=== PATIENT | male | born 1980 | race Caucasian/White ===

== ENCOUNTER 2019-10-15 20:28 | Emergency (ER) | payer BC, SELFPAY ==
[2019-10-15 20:39] VITALS: BP 146/89; PULSE 72; RESP 18; TEMP 35.8; O2SAT 99; BMI 35.9
--- NOTE | 2019-10-15 21:56 | CTR_ITS ---
PROCEDURE INFORMATION: Exam: CT Abdomen And Pelvis Without Contrast Exam date and time: 10/15/2019 10:13 PM Age: 39 years old Clinical indication: Abdominal pain; Flank; Left; Prior surgery; Surgery type: L-spine; Additional info: Flank pain TECHNIQUE: Imaging protocol: Computed tomography of the abdomen and pelvis without contrast. Radiation optimization: All CT scans at this facility use at least one of these dose optimization techniques: automated exposure control; mA and/or kV adjustment per patient size (includes targeted exams where dose is matched to clinical indication); or iterative reconstruction. COMPARISON: No relevant prior studies available. RADIATION DOSE METRICS: Total DLP: 2095.95 mGy-cm FINDINGS: Liver: Normal. No mass. Gallbladder and bile ducts: Normal. No calcified stones. No ductal dilation. Pancreas: Normal. No ductal dilation. Spleen: Normal. No splenomegaly. Adrenals: Normal. No mass. Kidneys and ureters: 3 mm calculus in the distal left ureter. Very mild left hydronephrosis and columning of the ureter. The right kidney and collecting system are normal. Stomach and bowel: Unremarkable. No obstruction. No mucosal thickening. Appendix: The appendix is visualized and is normal. Intraperitoneal space: Unremarkable. No free air. No significant fluid collection. Vasculature: Unremarkable. No abdominal aortic aneurysm. Lymph nodes: Unremarkable. No enlarged lymph nodes. Bladder: Unremarkable as visualized. Reproductive: Unremarkable as visualized. Bones/joints: Unremarkable. No acute fracture. Soft tissues: Unremarkable. CT/CT kidney stone [id number] IMPRESSION: 1. 3 mm calculus in the distal left ureter with very mild left hydronephrosis. Radiation Dose CTDIVOL = (mGy): DLP = 2095.95 (mGy-cm)
--- NOTE | 2019-10-15 21:58 | W.ED.MALEGU ---
HPI - Male Genitourinary General: Chief complaint: Urogenital-Male Stated complaint: POSSIBLE KIDNEY STONES Time Seen by Provider: 10/15/19 21:27 Source: patient Mode of arrival: ambulatory Limitations: no limitations History of Present Illness: HPI Narrative: 39-year-old male states he has had left flank pain that began 2 hours ago. He states pain is sharp in nature and rates it a 6 out of 10. He denies any vomiting or diarrhea but has had some nausea. Denies any fevers. Denies any testicle pain. He has no history of kidney stones in the past. Associated symptoms: Deny dysuria, nausea or vomiting Review of Systems Const: Denies: fever(s), chills, body aches or change in appetite Eyes: Denies: blurry vision or eye discomfort ENMT: Denies: throat pain or dental pain Card: Denies: chest pain Resp: Denies: dyspnea GI: Reports: abdominal pain; Denies: nausea, vomiting or diarrhea : Reports: flank pain; Denies: dysuria Musc: Denies: neck pain or back pain Skin/Breast: Denies: rash Neuro: Denies: headache(s) Psych: Denies: depression Alan/Lymph: Denies: easy bruising All/Imm: Denies: urticaria PFSH ED PFSH: Social History Smoking and tobacco status: never smoked Physical Exam Const: COMMON NORMALS: no acute distress, patient oriented x3 and healthy appearing HENMT: COMMON NORMALS: normocephalic and atraumatic HEAD & SCALP: normocephalic and atraumatic Eye: COMMON NORMALS: Equal, round and reactive pupils present and EOMs intact bilaterally PUPIL: Yes Equal, round and reactive pupils present Neck/C-Spine: COMMON NORMALS: full ROM and supple Chest: COMMONS NORMALS: normal inspection of the chest and normal palpation of entire chest wall Resp: COMMON NORMALS: normal respiratory effort, No retractions, No use of accessory muscles and clear to auscultation bilaterally AUSCULTATION: clear to auscultation bilaterally Cardio: COMMON NORMALS: regular rate, regular rhythm and No murmurs present (Cardio) RATE: regular rate RHYTHM: regular rhythm GI: COMMON NORMALS: Normal to inspection, nondistended, normoactive bowel sounds present, Soft to palpation, non-tender and no masses PALPATION: Yes Soft to palpation Extremity: COMMON NORMALS: normal to inspection and full ROM Neuro: COMMON NORMALS: patient oriented x3, moves all extremities and no focal motor deficits Psych: COMMON NORMALS: mental status grossly normal, Normal thought process present and cooperative THOUGHT PROCESS: Normal thought process present Skin: COMMON NORMALS: no rashes or lesions noted and no wounds GENERAL SKIN EXAM: no rashes or lesions noted Course Vital Signs: Vital signs: Vital Signs Temperature 96.5 F L 10/15/19 20:39 Pulse Rate 72 10/15/19 20:39 Respiratory Rate 18 10/15/19 20:39 Blood Pressure 146/89 10/15/19 20:39 Pulse Oximetry 99 10/15/19 20:39 MDM - Male MDM Narrative: Medical decision making narrative: Patient presents here with flank pain was found to have a kidney stone. Patient's pain-free here now and is stable for discharge. He is to follow-up with urology and return if worsening. Lab Data: Labs: Lab Results 10/15/19 Range/Units 23:20 Urine Color Yellow (Yellow) Urine Appearance Sl hazy (CLEAR) Urine pH 5 (5-7) Ur Specific Gravit y 1.020 (1.005-1.030) Urine Protein Neg (Negative) Urine Glucose (UA) Norm (Normal) Urine Ketones Negative (Negative) Urine Blood 3+ H (Negative) Urine Nitrate Negative (Negative) Urine Bilirubin Neg (NEGATIVE) Urine Urobilinogen Norm (Negative) mg/dL Ur Leukocyte Erin ase Negative (Negative) Urine RBC 50-80 H (0-2) /hpf Urine WBC 0-4 H (0-5) /hpf Ur Squamous Epith Cells 0-4 H (0-5) Urine Bacteria 1+ H (NONE) Imaging Data: CT Abd/Pel: Attestation: I personally reviewed and interpreted this imaging study as follows: Radiologist's impression: [address] [place] [address] CT Scan Report Signed Patient: Cindy Craig Unit #: [id number] : 1980 Age/Sex: 39 / M ADM Date: 10/15/19 Loc: ER Room/Bed: Attending Dr: Ordering Provider/Ordering MD: Gamaliel Casey MD Date of Service: 10/15/19 Procedure(s): CT kidney stone [id number] Accession Number(s): [id number] Report Number: [id number] PROCEDURE INFORMATION: Exam: CT Abdomen And Pelvis Without Contrast Exam date and time: 10/15/2019 10:13 PM Age: 39 years old Clinical indication: Abdominal pain; Flank; Left; Prior surgery; Surgery type: L-spine; Additional info: Flank pain TECHNIQUE: Imaging protocol: Computed tomography of the abdomen and pelvis without contrast. Radiation optimization: All CT scans at this facility use at least one of these dose optimization techniques: automated exposure control; mA and/or kV adjustment per patient size (includes targeted exams where dose is matched to clinical indication); or iterative reconstruction. COMPARISON: No relevant prior studies available. RADIATION DOSE METRICS: Total DLP: 2095.95 mGy-cm FINDINGS: Liver: Normal. No mass. Gallbladder and bile ducts: Normal. No calcified stones. No ductal dilation. Pancreas: Normal. No ductal dilation. Spleen: Normal. No splenomegaly. Adrenals: Normal. No mass. Kidneys and ureters: 3 mm calculus in the distal left ureter. Very mild left hydronephrosis and columning of the ureter. The right kidney and collecting system are normal. Stomach and bowel: Unremarkable. No obstruction. No mucosal thickening. Appendix: The appendix is visualized and is normal. Intraperitoneal space: Unremarkable. No free air. No significant fluid collection. Vasculature: Unremarkable. No abdominal aortic aneurysm. Lymph nodes: Unremarkable. No enlarged lymph nodes. Bladder: Unremarkable as visualized. Reproductive: Unremarkable as visualized. Bones/joints: Unremarkable. No acute fracture. Soft tissues: Unremarkable. CT/CT kidney stone [id number] IMPRESSION: 1. 3 mm calculus in the distal left ureter with very mild left hydronephrosis. Discharge Plan Discharge Patient Disposition: Home, Self-Care Clinical Impression: Kidney stone Condition: Stable Prescriptions: [place] 5-325 mg tablet 1 tab PO Q6H PRN (Reason: pain) Qty: 14 RF: 0 Zofran 4 mg tablet 4 mg PO QID PRN (Reason: nausea and vomiting) Qty: 14 RF: 0 Flomax 0.4 mg capsule 0.4 mg PO DAILY Qty: 5 RF: 0 Referrals: Tristen Mcgill [Primary Care Provider] - Benito Duran MD [Physician] - 1-3 days Discharge Diet: Advance as tolerated Discharge Activity: Resume usual activity Patient Instructions: Kidney Stones (ED) Coding Level of Care Code ED Special Projects Coordinator for Chg Fwd Exam Comprehensive
[2019-10-15] MEDS: ketorolac 30 mg/mL INJ IVP (22:17)
[2019-10-15] MEDS: ondansetron 2 mg/ML SDV 2 mL 4 MG IVP (22:17)
[2019-10-15] MEDS: sodium chloride 0.9% 1,000 ML 999 ML IV (22:18)
[2019-10-15 23:46] LABS: Add Urine Culture? Yes; Add Urine Microscopic? YES; Bacteria Urine 1+; Bilirubin Urine Neg (NEGATIVE); Blood Urine 3+ (Negative); Glucose Urine UA Norm (Normal); Ketones Urine Negative (Negative); Leukocyte Esterase Urine Negative (Negative); Nitrate Urine Negative (Negative); Protein Urine Neg (Negative); RBC Urine 50-80 /hpf (0-2); Squamous Epithelial Cell Urine 0-4 (0-5); Urine Appearance SL Hazy (CLEAR); Urine Color Yellow (Yellow); Urobilinogen Urine Norm (Negative); WBC Urine 0-4 /hpf (0-5); pH Urine 5 (5-7)
[2019-10-16 00:02] VITALS: BP 155/81; PULSE 71; RESP 16; O2SAT 99
--- NOTE | 2019-10-16 11:30 | DCPLANNER ---
trials manager had message to schedule a follow up appointment for patient with Dr. Duran. trials manager called the office of Dr. Duran, spoke with Petty, gave clinic patients information. trials manager was told that patients information would be printed and given to Cat for review. Clinic will call patient with appointment information, ed case manager will call for appointment information.
--- NOTE | 2019-10-17 14:16 | DCPLANNER ---
Patient has a follow up appointment scheduled for , October 17, 2019 at 3:[address] Mcgee office. Clinic will call patient with appointment information.
--- NOTE | 2019-11-14 14:06 | DCPLANNER ---
Patient did attend appointment scheduled for 10.17.[address] Duran.
== END 2019-10-16 00:02 | disposition home or self-care (01) ==
PROVIDERS: Emergency Provider Emergency Medicine; Family Provider Family Medicine; PCP Family Medicine
DX: N20.0 Calculus of kidney (principal)
CPT/HCPCS: 12345; 74176; 81001; 87086; 96361; 96374; 96375; 99283; J1885; J2405; J7030

== ENCOUNTER 2019-10-17 14:05 | Outpatient (CLI) | payer BC, SELFPAY ==
--- NOTE | 2019-10-17 14:30 | XRR_ITS ---
PROCEDURE INFORMATION: Exam: XR Abdomen, 1 View Exam date and time: 10/17/2019 2:09 PM Age: 39 years old Clinical indication: Condition or disease; Kidney or ureter condition; Calculus (stone) in kidney; Additional info: Kidney stone f/u TECHNIQUE: Imaging protocol: XR of the abdomen. Views: Frontal supine view of the abdomen. 1 View. COMPARISON: CT kidney stone [id number] 10/15/2019 10:27 PM FINDINGS: Gastrointestinal tract: No gas-filled distended loops of bowel. Organs: No radiopaque renal or ureteral calculi. The distal left ureteral calculus on the recent CT scan is not visualized on the frontal linen sorter image. Therefore, it may be radiographically occult. Vasculature: There are phleboliths in the pelvis. Bones/joints: No acute osseous abnormality. XR/XR KUB [id number] IMPRESSION: No radiographic renal or ureteral calculus. If the patient is still symptomatic consider follow-up noncontrast CT ABDOMEN/PELVIS.
== END 2019-10-17 14:06 | disposition home or self-care (01) ==
LOC: RAD 14:08
PROVIDERS: PCP Family Medicine; Visit Provider Nurse Practitioner Family
DX: N20.0 Calculus of kidney (principal)
CPT/HCPCS: 74018; 81001

== ENCOUNTER 2019-11-05 08:53 | Outpatient (CLI) | payer BC, SELFPAY ==
--- NOTE | 2019-11-05 09:02 | XRR_ITS ---
PROCEDURE INFORMATION: Exam: XR Abdomen, 1 View Exam date and time: 11/05/2019 9:11 AM Age: 39 years old Clinical indication: Condition or disease; Kidney or ureter condition; Calculus (stone) in ureter; Patient HX: F/u stone lt ureter TECHNIQUE: Imaging protocol: XR of the abdomen. Views: Frontal supine view of the abdomen. 1 View. COMPARISON: CR XR KUB [id number] 10/17/2019 2:18 PM FINDINGS: Gastrointestinal tract: The bowel gas pattern is nonspecific. Air filled large bowel including distal rectal gas. Organs: No calcifications are seen overlying the renal outlines or the expected course of the right or left ureters. No suspicious calcifications within the pelvis. Bones/joints: Unremarkable. XR/XR KUB [id number] IMPRESSION: The bowel gas pattern is nonspecific. Air filled large bowel including distal rectal gas.
== END 2019-11-05 08:54 | disposition home or self-care (01) ==
PROVIDERS: PCP Family Medicine; Visit Provider Urology
DX: N20.1 Calculus of ureter (principal)
CPT/HCPCS: 74018; 81001

== ENCOUNTER 2023-03-25 20:57 | Emergency (ER) | payer OTHER, SELFPAY ==
[2023-03-25 21:04] VITALS: BP 174/98; PULSE 98; RESP 20; TEMP 36.8; O2SAT 98; BMI 40.1
--- NOTE | 2023-03-25 21:55 | W.ED.GENADLT ---
HPI - General Adult General: Chief complaint: General Medical Stated complaint: hemmorrhoid Time Seen by Provider: 03/25/23 21:05 History of Present Illness: This patient is a 43-year-old white male who presents to the emergency department stating that he has noticed some swelling around the anus over the past 3 days. He is having some discomfort in the area. States he does have hemorrhoids as well but he is not sure if this is a hemorrhoid or something else going on. He has not had a fever. No drainage from the area. Review of Systems General: Reports: 10 or more systems reviewed and unremarkable except in HPI and below PFSH ED PFSH: Medical History History of herniated intervertebral disc had surgery Left ureteral calculus Family History Father , at age 65 brain cancer Cancer Social History Smoking and tobacco/nicotine status: never used tobacco/nicotine Alcohol intake: never Substance/Drug Use: unknown Adopted: No Caregiver/support person: No Lives independently: No Household members: spouse Marital status: Current occupational status: employed Current gender identity: Male Physical Exam Const: COMMON NORMALS: no acute distress, patient oriented x3 and no limitations GENERAL APPEARANCE: cooperative and comfortable HENMT: COMMON NORMALS: normocephalic, atraumatic, Normal nasal mucous membranes and turbinates present, moist oral mucous membranes and oropharynx normal HEAD & SCALP: normal to inspection, normocephalic and atraumatic FACE & SINUS: normal facial exam NOSE: Normal nasal mucous membranes and turbinates present Eye: COMMON NORMALS: Equal, round and reactive pupils present, EOMs intact bilaterally and conjunctivae normal GENERAL EYE: appearance normal, both eyes and all related structures CONJUNCTIVA: Yes conjunctivae normal PUPIL: Yes Equal, round and reactive pupils present Neck/C-Spine: COMMON NORMALS: supple and no JVD Chest: COMMONS NORMALS: normal inspection of the chest Resp: COMMON NORMALS: normal respiratory effort and clear to auscultation bilaterally AUSCULTATION: clear to auscultation bilaterally Cardio: COMMON NORMALS: no JVD, regular rate, regular rhythm, No gallops present (Cardio), No murmurs present (Cardio) and No rub (Cardio) RATE: regular rate RHYTHM: regular rhythm GI: COMMON NORMALS: Normal to inspection, nondistended, normoactive bowel sounds present, Soft to palpation and non-tender AUSCULTATION: Yes normoactive bowel sounds PALPATION: Yes Soft to palpation RECTAL EXAM: Yes hemorrhoids and Yes tenderness (There is a slight tender area just anterior to the anus, no fluctuance) : COMMON NORMALS: Yes no CVA tenderness BLADDER/KIDNEY EXAM: Yes no CVA tenderness Back/Pelvis: COMMON NORMALS: no CVA tenderness and thoracic and lumbar spine normal to inspection Extremity: COMMON NORMALS: normal to inspection Neuro: COMMON NORMALS: patient oriented x3 and CN's II-XII intact bilaterally Psych: COMMON NORMALS: mental status grossly normal, Normal thought process present and cooperative THOUGHT PROCESS: Normal thought process present Skin: COMMON NORMALS: no rashes or lesions noted, turgor normal and no jaundice GENERAL SKIN EXAM: no rashes or lesions noted and turgor normal Course Vital Signs: Vital signs: Vital Signs Temperature 98.2 F 03/25/23 21:04 Pulse Rate 98 03/25/23 21:04 Respiratory Rate 20 H 03/25/23 21:04 Blood Pressure 174/98 03/25/23 21:04 Pulse Oximetry 98 03/25/23 21:04 [facility] - General Adult Medical Decision Making Patient was concerned about a possible abscess in the area. There could be an early abscess but I do not feel any fluctuance at this time so I did not recommend I&D at this time. I did recommend wet-to-dry dressings and instructed him on how to do so and we did supply him with 4 x [address] him on Bactrim and Keflex and he was given his first doses in the emergency department. I also prescribed Anusol HC. I recommended he follow-up with his primary care physician in 1 week for recheck. If this painful area does get worse and develops into an abscess he should return to the emergency department for reevaluation. He was discharged in stable condition. No radiology studies performed this visit Discharge Plan Discharge Patient Disposition: Home Clinical Impression: Hemorrhoids, Abscess, perirectal Condition: Stable Prescriptions: New Bactrim 400-80 mg tablet 1 tab PO BID 10 Days Qty: 20 0RF cephalexin 500 mg capsule 500 mg PO TID 10 Days Qty: 30 0RF Anusol-HC 25 mg suppository 25 mg OK BID 6 Days Qty: 12 0RF No Action omeprazole 20 mg tablet,disintegrat, delay rel 20 mg PO DAILY Qty: 30 2RF fexofenadine-pseudoephedrine [Dayanara-D 12 Hour] 60-120 mg tablet extended release 12 hr 1 tab PO Q12H PRN (Reason: sinus symptoms) 14 Days Qty: 30 0RF triamcinolone acetonide 0.1 % ointment 1 applic topical BID Qty: 15 0RF albuterol sulfate 90 mcg/actuation HFA aerosol inhaler 2 puff inhalation Q6H Qty: 8.5 0RF Rx Instructions: 2 puffs inhaled every 6 hours as needed Discharge Orders: Discharge ED (Routine); Ordered 03/25/23 Ordered By: Nasim Ramírez Referrals: Tristen Mcgill [Primary Care Provider] - Patient Instructions: Opioid Safety, Pain Management Coding Level of Care Code ED Apartment Community Manager for Carlos López
[2023-03-25] MEDS: cephALEXin 500 mg Capsule PO (22:03)
[2023-03-25] MEDS: sulfamethoxazole-trimeth DS 160-800 mg Tablet 1 TAB PO (22:03)
== END 2023-03-25 22:06 | disposition home or self-care (01) ==
PROVIDERS: Emergency Provider Emergency Medicine; PCP Family Medicine
DX: K64.9 Unspecified hemorrhoids (principal); K61.1 Rectal abscess
CPT/HCPCS: 99283